=== PATIENT | female | born 1955 | race Caucasian/White ===

== ENCOUNTER 2022-09-12 09:06 | Outpatient (AMB) | payer MEDICARE, OTHER, SELFPAY ==
--- NOTE | 2022-09-12 09:12 | MHC.OFFVIS ---
Intake Vital Signs 09/12/22 09:26 Height 5 ft 7.5 in Weight 180 lb 1.883 oz BMI 27.8 BP 114/62 Blood Pressure Location Rt brachial Position Sitting Pulse 79 Pulse Source Pulse Oximeter Temp 97.8 F Temp Source Skin Pulse Oximetry (%) 97 Intake Visit Reasons: Joint Pain - Confirmed Intake Note: New pt presents today for joint pain consult. C/o joint pain, multiple areas. States it comes and goes. On plaquenil follows with [facility] in [place], [facility] appt next week. Machine Preservative Filler Required: No Accompanied by: Self / Same As Patient Allergies Penicillins Adverse Reaction (Unknown, Verified 09/12/22 09:38) Rash Sulfa (Sulfonamide Antibiotics) Adverse Reaction (Unknown, Verified 09/12/22 09:38) Rash Medication List - Last Reconciled 09/12/22 by Valeri Johnson MD acetaminophen (Tylenol Extra Strength) 500 mg PO Q6H PRN azelastine intranasal famotidine (Pepcid) 20 mg PO BEDTIME PRN hydroxychloroquine 200 mg PO BEDTIME hydroxychloroquine 200 mg PO BEDTIME ibuprofen 200 mg PO Q6H PRN loratadine 10 mg PO DAILY PRN HPI HPI Comments History of Present Illness Details This is a 67-year-old female with history of undifferentiated connective tissue disease of presents as a new patient. 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 Patient was diagnosed with UCTD 45 years ago, she had tenosynovitis of her hand as well as a positive CHARAN. She had been on hydroxychloroquine for 4-5 years with good control of her symptoms. Patient states that she continues to get intermittent pain in her wrists, that pain improves with activity such as gardening. She also gets intermittent pain in her knees and shoulders. Her pain is worse when she does not sleep well. She denies any skin rashes. Denies any history of DVT/PE. Gets mildly short of breath when walking uphill but not enough for her to stop. Denies progressive GERD symptoms. Denies any significant weight change. Denies [facility] Medical History GERD (gastroesophageal reflux disease) Undifferentiated connective tissue disease Surgical History S/P ear surgery Family History Mother Hypertension Malignant neoplasm of breast (female) Arthritis Sjogren's syndrome Father Stroke Sister Malignant tumor of ovary Family/Other Multiple sclerosis Social History Household Members: Family Alcohol intake: current Alcohol intake frequency: holidays/special occasions only Patient Tobacco Use Status: Never used Tobacco Female Reproductive History Menstrual Total pregnancies: 2 Number of Living Children: 2 Review of Systems Const Denies weight gain and Denies weight loss GI Reports heartburn and Reports nausea Musc Reports arthralgias, Reports joint swelling and Reports stiffness Physical Exam Vital Signs: Last Vital Signs Temp 97.8 F 09/12/22 09:26 Pulse 79 09/12/22 09:26 BP 114/62 09/12/22 09:26 Pulse Ox 97 09/12/22 09:26 BMI result Body Mass Index 27.8 Const General: cooperative, healthy appearing and comfortable Nutritional Appearance: overweight Orientation/consciousness: patient oriented x3 Limitations: no limitations HEENT Head: Yes normocephalic and Yes atraumatic Mouth: moist mucous membranes Resp Effort & Inspection: normal respiratory effort and able to speak in complete sentences Auscultation: clear to auscultation bilaterally Cardio Rate: regular rate Rhythm: regular rhythm GI Inspection: No distended Palpation (GI): Soft to palpation and nontender Skin General skin exam: no rashes or lesions noted Neuro General: patient oriented x3 Extrem Other: Mildly left wrist pain with full wrist extension Left 2nd MCP boggy swelling without tenderness Left 5th finger early Dupuytren's contracture Boggy swelling of bilateral 1st MCPs without tenderness Normal range of motion of both shoulders Bilateral knee crepitus more pronounced on the left Results Reviewed Results Reviewed: Labs 04/2021? C3/C4 normal? ESR 14? CRP 13.5 (<9.0) CMP unremarkable Urinalysis is normal? CBC unremarkable CHARAN 1-320 nuclear dense fine speckled DsDNA negative Assessment & Plan Assessment & Plan (1) Undifferentiated connective tissue disease: Code(s): M35.9 - Systemic involvement of connective tissue, unspecified Plan: This is a 67-year-old female who presents for evaluation of undifferentiated connective tissue disease. 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 Patient was diagnosed with UCTD 45 years ago. She had tenosynovitis of her hand and a positive CHARAN. No other features of connective tissue diseases. Patient has responded well to hydroxychloroquine. She continues to get intermittent joint pain and stiffness. Will check labs for inflammatory markers and rule out overlap with other connective tissue diseases Increase hydroxychloroquine to 400 mg daily Follow-up in 3 months (2) Long-term use of hydroxychloroquine: Code(s): Z79.899 - Other buttermaker continuous churn (current) drug therapy Plan: Continue to follow-up regularly with Ophthalmology Plan I spent 33 minutes reviewing patient's chart, evaluating patient, ordering diagnostic workup, counseling patient and documenting in the chart Orders: Orders Comprehensive Met. Panel Today M32.9 - Systemic lupus erythematosus, unspecified, M35.9 - Systemic involvement of connective tissue, unspecified C Reactive Protein Today M32.9 - Systemic lupus erythematosus, unspecified, M35.9 - Systemic involvement of connective tissue, unspecified Complete Blood Count Auto Diff Today M32.9 - Systemic lupus erythematosus, unspecified, M35.9 - Systemic involvement of connective tissue, unspecified Erythrocyte Sedimentation Rate Today M32.9 - Systemic lupus erythematosus, unspecified, M35.9 - Systemic involvement of connective tissue, unspecified Protein Creatinine Ratio, Ur Today M32.9 - Systemic lupus erythematosus, unspecified, M35.9 - Systemic involvement of connective tissue, unspecified Complement C3 Today M32.9 - Systemic lupus erythematosus, unspecified, M35.9 - Systemic involvement of connective tissue, unspecified Complement C4 Today M32.9 - Systemic lupus erythematosus, unspecified, M35.9 - Systemic involvement of connective tissue, unspecified Anti DNA DS Antibody Today M32.9 - Systemic lupus erythematosus, unspecified, M35.9 - Systemic involvement of connective tissue, unspecified Anti Extractable Nuclear Ag Today M32.9 - Systemic lupus erythematosus, unspecified, M35.9 - Systemic involvement of connective tissue, unspecified Sjogren's Antibodies Today M32.9 - Systemic lupus erythematosus, unspecified, M35.9 - Systemic involvement of connective tissue, unspecified UA w Microscopic Today M32.9 - Systemic lupus erythematosus, unspecified, M35.9 - Systemic involvement of connective tissue, unspecified Medications: New hydroxychloroquine 200 mg PO BID 60 tabs 2RF Coding Level of Care Code New Pt Level 3 (75033) Diagnoses Undifferentiated connective tissue disease M35.9 Long-term use of hydroxychloroquine Z79.899
[2022-09-12 09:26] VITALS: BP 114/62; PULSE 79; TEMP 36.6; O2SAT 97; BMI 27.8
== END 2022-09-12 10:05 | disposition home or self-care (01) ==
PROVIDERS: PCP Internal Medicine; Visit Provider Student in an Organized Health Care Education/Training Program
DX: M35.89 Other specified systemic involvement of connective tissue (principal); Z79.899 Other long term (current) drug therapy
CPT/HCPCS: 99204

== ENCOUNTER → 2022-09-12 09:06 | Outpatient (BNVA) | payer OTHER, SELFPAY | PROVIDERS: PCP Internal Medicine; Visit Provider Student in an Organized Health Care Education/Training Program ==

== ENCOUNTER 2022-09-12 09:55 | Outpatient (REF) | payer MEDICARE, OTHER, SELFPAY ==
[2022-09-12 10:32] LABS: MANUAL DIFF FLAG NO
[2022-09-12 10:38] LABS: Basophils Percent Auto 0.5 % (0-2); Eosinophils Absolute Auto 0.2 X10*3/uL (0.0-0.4); Eosinophils Percent Auto 3.4 % (0-4); Hematocrit 43.8 % (37.0-47.0); Hemoglobin 14.5 g/dl (12.0-16.0); Imm Gran Abs Auto 0.01 X10*3/uL (0.00-0.03); Imm Gran Pct Auto 0.2 % (0.0-0.4); Lymphocytes Absolute Auto 1.1 X10*3/uL (1.2-4.9); Lymphocytes Percent Auto 20.2 % (20-40); Mean Corpuscular HGB Conc 33.1 g/dl (31.0-35.0); Mean Corpuscular Hemoglobin 29.4 pg (27.0-33.0); Mean Corpuscular Volume 88.7 fL (80.0-98.0); Mean Platelet Volume 8.5 fL (9.4-12.3); Monocytes Absolute Auto 0.5 X10*3/uL (0.1-1.2); Monocytes Percent Auto 8.5 % (2-11); Neutrophils Absolute Auto 3.8 x10*3/uL (2.0-8.3); Neutrophils Percent Auto 67.2 % (45-73); Platelet Count 309 X10*3/uL (160-400); Red Blood Count 4.94 X10*6/uL (4.20-5.50); Red Cell Distribution Width 12.2 % (11.0-16.0); White Blood Count 5.6 X10*3/uL (4.8-10.8)
[2022-09-12 11:06] LABS: Appearance Urine Clear; Color Urine Yellow; Glucose Urine UA Negative (Negative); Leukocyte Esterase Urine Negative (Negative); Nitrite Urine Negative (Negative); PH 5.5 (5.0-9.0); Urine Blood Negative (Negative); Urine Ketones Negative (Negative); Urine Protein Negative (Neg-Trace)
[2022-09-12 11:09] LABS: Bacteria Urine None Seen (None Seen); Hyaline Casts Urine 0-2 /LPF (0-2); Squamous Epithelial Cell Urine 0-2 /HPF (0-2); WBC Urine 0-5 /HPF (0-5)
[2022-09-12 11:23] LABS: Alanine Aminotransferase 14 U/L (0-31); Albumin Level 4.2 g/dL (3.5-5.0); Alkaline Phosphatase 90 U/L (39-117); Anion Gap 14 (12-20); Aspartate Amino Transferase 19 U/L (5-31); Bilirubin Total 0.5 mg/dL (0.0-1.0); Blood Urea Nitrogen 21 mg/dL (9-16); C Reactive Protein 0.29 mg/dL (< or = 0.50); Calcium 9.4 mg/dL (8.4-10.2); Carbon Dioxide 24 mmol/L (22-29); Chloride 106 mmol/L (96-108); Estimated Glomerular Filt Rate > 60; Glucose Random 84 mg/dL (60-115); Potassium 4.1 mmol/L (3.3-5.1); Sodium 140 mmol/L (135-145); Total Protein 7.7 g/dL (6.5-8.0)
[2022-09-12 11:24] LABS: Creatinine Urine 141.01 mg/dL; Total Protein Urine Random < 7 mg/dL (<12)
[2022-09-12 11:26] LABS: Erythrocyte Sedimentation Rate 5 MM/HR (0-20)
[2022-09-14 12:53] LABS: Complement C3 152 mg/dL (83-193)
[2022-09-14 19:18] LABS: Anti DNA DS Antibody <1 IU/mL; Antibody to SS-A Antigen <1.0 NEG AI (<1.0 NEG); Antibody to SS-B Antigen <1.0 NEG AI (<1.0 NEG); SM/Ribonucleoprotein Ab <1.0 NEG AI (<1.0 NEG); Smith Protein <1.0 NEG AI (<1.0 NEG)
== END 2022-09-12 09:56 | disposition home or self-care (01) ==
LOC: HO.10HDL 09:55
PROVIDERS: Visit Provider Student in an Organized Health Care Education/Training Program
DX: M32.9 Systemic lupus erythematosus, unspecified (principal); M35.9 Systemic involvement of connective tissue, unspecified; Z79.899 Other long term (current) drug therapy
CPT/HCPCS: 36415; 80053; 81001; 84156; 85025; 85652; 86140; 86160; 86225; 86235

== ENCOUNTER 2023-01-09 09:37 | Outpatient (AMB) | payer MEDICARE, OTHER, SELFPAY ==
[2023-01-09 10:06] VITALS: BP 112/72; PULSE 73; TEMP 35.9; O2SAT 98; BMI 28.0
--- NOTE | 2023-01-09 10:06 | MHC.OFFVIS ---
Intake Vital Signs 01/09/23 10:06 Height 5 ft 7.5 in Weight 181 lb 3.52 oz BMI 28.0 BP 112/72 Blood Pressure Location Rt brachial Position Sitting Pulse 73 Pulse Source Pulse Oximeter Temp 96.7 F L Temp Source Skin Pulse Oximetry (%) 98 Oxygen Delivery Method Room Air Intake Visit Reasons: UCTD Intake Note: Pt last seen 09/12/22, presents today for follow up and test results. On plaquenil 400mg daily. Follows with [facility], last seen in September. 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 Development Engineer Required: No Accompanied by: Self / Same As Patient Allergies Penicillins Adverse Reaction (Unknown, Verified 01/09/23 10:09) Rash Sulfa (Sulfonamide Antibiotics) Adverse Reaction (Unknown, Verified 01/09/23 10:09) Rash Medication List - Last Reconciled 01/09/23 by Valeri Johnson MD acetaminophen (Tylenol Extra Strength) 500 mg PO Q6H PRN azelastine intranasal famotidine (Pepcid) 20 mg PO BEDTIME PRN hydroxychloroquine 400 mg PO BEDTIME ibuprofen 200 mg PO Q6H PRN loratadine 10 mg PO DAILY PRN HPI HPI Comments History of Present Illness Details 67-year-old female with UCTD returns for follow-up. She has been taking 400 mg of Plaquenil nightly since last visit. She did not notice any improvement in her symptoms. She is doing well overall. Has been quite active. Gets generalized morning stiffness lasting 5-10 minutes. Denies any swollen joints. Denies any cough or shortness of breath. Initial history: This is a 67-year-old female with history of undifferentiated connective tissue disease of presents as a new patient. 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 Patient was diagnosed with UCTD 45 years ago, she had tenosynovitis of her hand as well as a positive CHARAN. She had been on hydroxychloroquine for 4-5 years with good control of her symptoms. Patient states that she continues to get intermittent pain in her wrists, that pain improves with activity such as gardening. She also gets intermittent pain in her knees and shoulders. Her pain is worse when she does not sleep well. She denies any skin rashes. Denies any history of DVT/PE. Gets mildly short of breath when walking uphill but not enough for her to stop. Denies progressive GERD symptoms. Denies any significant weight change. Denies [facility] Medical History Undifferentiated connective tissue disease GERD (gastroesophageal reflux disease) Surgical History S/P ear surgery Family History Mother Hypertension Malignant neoplasm of breast (female) Arthritis Sjogren's syndrome Father Stroke Sister Malignant tumor of ovary Family/Other Multiple sclerosis Social History Household Members: Family Alcohol intake: current Alcohol intake frequency: holidays/special occasions only Patient Tobacco Use Status: Never used Tobacco Review of Systems Card Denies dyspnea Resp Denies cough and Denies dyspnea Musc Reports arthralgias and Reports stiffness Physical Exam Vital Signs: Last Vital Signs Temp 96.7 F L 01/09/23 10:06 Pulse 73 01/09/23 10:06 BP 112/72 01/09/23 10:06 Pulse Ox 98 01/09/23 10:06 Oxygen Delivery Method Room Air 01/09/23 10:06 BMI result Body Mass Index 28.0 Const General: cooperative, healthy appearing and comfortable Nutritional Appearance: overweight Orientation/consciousness: patient oriented x3 Limitations: no limitations HEENT Head: Yes normocephalic and Yes atraumatic Mouth: moist mucous membranes Resp Effort & Inspection: normal respiratory effort and able to speak in complete sentences Auscultation: clear to auscultation bilaterally Cardio Rate: regular rate Rhythm: regular rhythm GI Inspection: No distended Palpation (GI): Soft to palpation and nontender Skin General skin exam: no rashes or lesions noted Neuro General: patient oriented x3 Extrem Other: Mildl left wrist pain with full wrist extension Left 5th finger early Dupuytren's contracture Boggy swelling of bilateral 1st MCPs without tenderness Normal range of motion of both shoulders Bilateral knee crepitus more pronounced on the left Negative straight leg raise test bilaterally Results Reviewed Results Reviewed: Labs 04/2021? C3/C4 normal? ESR 14? CRP 13.5 (<9.0) CMP unremarkable Urinalysis is normal? CBC unremarkable CHARAN 1-320 nuclear dense fine speckled DsDNA negative Assessment & Plan Assessment & Plan (1) Undifferentiated connective tissue disease: Comment: dx around 2018 Code(s): M35.9 - Systemic involvement of connective tissue, unspecified Plan: This is a 67-year-old female with UCTD presents for follow-up. On hydroxychloroquine 400 mg daily. There has been no change in symptoms when hydroxychloroquine was increased from 200 mg to 400 mg daily Reduce hydroxychloroquine to 200 mg daily. Labs before next visit in 6 months (2) Long-term use of hydroxychloroquine: Code(s): Z79.899 - Other emt intermediate (current) drug therapy Plan: Continue to follow-up regularly with Ophthalmology. Will request most recent ophthalmology note Plan I spent 26 minutes reviewing patient's chart, evaluating patient, ordering diagnostic workup, counseling patient and documenting in the chart Orders: Orders Complete Blood Count Auto Diff 6 Months M35.9 - Systemic involvement of connective tissue, unspecified Comprehensive Met. Panel 6 Months M35.9 - Systemic involvement of connective tissue, unspecified C Reactive Protein 6 Months M35.9 - Systemic involvement of connective tissue, unspecified Erythrocyte Sedimentation Rate 6 Months M35.9 - Systemic involvement of connective tissue, unspecified Cyclic Citrullinated Peptide 6 Months M35.9 - Systemic involvement of connective tissue, unspecified Rheumatoid Factor 6 Months M35.9 - Systemic involvement of connective tissue, unspecified Medications: Changed From hydroxychloroquine 400 mg PO BEDTIME To hydroxychloroquine 200 mg PO DAILY 90 tabs 1RF Coding Level of Care Code Est Pt Level 4 (33288) Diagnoses Undifferentiated connective tissue disease M35.9 Long-term use of hydroxychloroquine Z79.899
== END 2023-01-09 10:38 | disposition home or self-care (01) ==
PROVIDERS: PCP Internal Medicine; Visit Provider Student in an Organized Health Care Education/Training Program
DX: M35.89 Other specified systemic involvement of connective tissue (principal); Z79.899 Other long term (current) drug therapy
CPT/HCPCS: 99214

== ENCOUNTER → 2023-01-09 09:37 | Outpatient (BNVA) | payer MEDICARE, OTHER, SELFPAY | PROVIDERS: PCP Internal Medicine; Visit Provider Student in an Organized Health Care Education/Training Program | DX: M35.9 Systemic involvement of connective tissue, unspecified (principal); Z79.899 Other long term (current) drug therapy | CPT/HCPCS: 99212 ==

== ENCOUNTER 2023-06-26 16:27 | Outpatient (REF) | payer MEDICARE, OTHER, SELFPAY ==
[2023-06-26 16:38] LABS: MANUAL DIFF FLAG NO
[2023-06-26 17:49] LABS: Basophils Percent Auto 0.6 % (0-2); Eosinophils Absolute Auto 0.2 X10*3/uL (0.0-0.4); Eosinophils Percent Auto 3.3 % (0-4); Hematocrit 43.5 % (37.0-47.0); Hemoglobin 14.5 g/dl (12.0-16.0); Imm Gran Abs Auto 0.02 X10*3/uL (0.00-0.03); Imm Gran Pct Auto 0.3 % (0.0-0.4); Lymphocytes Absolute Auto 1.9 X10*3/uL (1.2-4.9); Lymphocytes Percent Auto 28.3 % (20-40); Mean Corpuscular HGB Conc 33.3 g/dl (31.0-35.0); Mean Corpuscular Volume 90.1 fL (80.0-98.0); Mean Platelet Volume 8.7 fL (9.4-12.3); Monocytes Absolute Auto 0.6 X10*3/uL (0.1-1.2); Monocytes Percent Auto 9.2 % (2-11); Neutrophils Absolute Auto 3.9 x10*3/uL (2.0-8.3); Neutrophils Percent Auto 58.3 % (45-73); Platelet Count 291 X10*3/uL (160-400); Red Blood Count 4.83 X10*6/uL (4.20-5.50); Red Cell Distribution Width 12.3 % (11.0-16.0); White Blood Count 6.8 X10*3/uL (4.8-10.8)
[2023-06-26 18:18] LABS: Rheumatoid Factor < 13.0 IU/mL (<15.0)
[2023-06-26 18:21] LABS: Alanine Aminotransferase 11 U/L (0-31); Albumin Level 4.2 g/dL (3.5-5.0); Alkaline Phosphatase 84 U/L (39-117); Anion Gap 14 (12-20); Aspartate Amino Transferase 18 U/L (5-31); Bilirubin Total 0.3 mg/dL (0.0-1.0); Blood Urea Nitrogen 25 mg/dL (9-16); Calcium 9.2 mg/dL (8.4-10.2); Carbon Dioxide 23 mmol/L (22-29); Chloride 108 mmol/L (96-108); Estimated Glomerular Filt Rate 55; Glucose Random 107 mg/dL (60-115); Potassium 3.7 mmol/L (3.3-5.1); Sodium 141 mmol/L (135-145); Total Protein 7.6 g/dL (6.5-8.0)
[2023-06-26 18:32] LABS: Erythrocyte Sedimentation Rate 7 MM/HR (0-20)
[2023-06-27 15:43] LABS: Cyclic Citrullinated Peptide 38 UNITS
== END 2023-06-26 16:28 | disposition home or self-care (01) ==
LOC: HO.LAB 16:27
PROVIDERS: Visit Provider Student in an Organized Health Care Education/Training Program
DX: M35.9 Systemic involvement of connective tissue, unspecified (principal)
CPT/HCPCS: 36415; 80053; 85025; 85652; 86140; 86200; 86431

== ENCOUNTER 2023-07-03 09:17 | Outpatient (AMB) | payer MEDICARE, OTHER, SELFPAY ==
--- NOTE | 2023-07-03 09:29 | MHC.OFFVIS ---
Vital Signs 07/03/23 09:40 Height 5 ft 7.5 in Weight 179 lb 7.3 oz BMI 27.7 BP 138/64 Blood Pressure Location Rt brachial Position Sitting Pulse 80 Pulse Oximetry (%) 97 Intake Visit Reasons: UCTD Intake Note: Patient last seen 01/09/23 presents today for follow up and test results. Patient would like to increase her plaquenil to BID. Last eye care visit 09/2022 (notes scanned in). Allergies Penicillins Adverse Reaction (Unknown, Verified 07/03/23 09:39) Rash Sulfa (Sulfonamide Antibiotics) Adverse Reaction (Unknown, Verified 07/03/23 09:39) Rash Medication List - Last Reconciled 07/03/23 by Valeri Johnson MD acetaminophen (Tylenol Extra Strength) 500 mg PO Q6H PRN azelastine intranasal famotidine (Pepcid) 20 mg PO BEDTIME PRN hydroxychloroquine 400 mg (2 x 200 mg) PO DAILY ibuprofen 200 mg PO Q6H PRN loratadine 10 mg PO DAILY PRN HPI Comments Details: 68-year-old female with UCTD returns for follow-up. She has lowered her hydroxychloroquine dose to 200 mg daily since last visit 6 months ago and since then she has noticed her MSK complaints. She gets bilateral ankle and foot pain when going down the stairs. She gets elbow pain with distal trauma. She has morning stiffness lasting 15 minutes. Has not noticed any significantly swollen joints. Otherwise she has been doing well. Denies any chest pain or shortness of breath. Like to increase the hydroxychloroquine back to 400 mg daily Initial history: This is a 67-year-old female with history of undifferentiated connective tissue disease of presents as a new patient. 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 Patient was diagnosed with UCTD 4-5 years ago, she had tenosynovitis of her hand as well as a positive CHARAN. She had been on hydroxychloroquine for 4-5 years with good control of her symptoms. Patient states that she continues to get intermittent pain in her wrists, that pain improves with activity such as gardening. She also gets intermittent pain in her knees and shoulders. Her pain is worse when she does not sleep well. She denies any skin rashes. Denies any history of DVT/PE. Gets mildly short of breath when walking uphill but not enough for her to stop. Denies progressive GERD symptoms. Denies any significant weight change. Denies [facility] Medical History Undifferentiated connective tissue disease GERD (gastroesophageal reflux disease) Surgical History S/P ear surgery Family History Mother Hypertension Malignant neoplasm of breast (female) Arthritis Sjogren's syndrome Father Stroke Sister Malignant tumor of ovary Family/Other Multiple sclerosis Social History Household Members: Family Alcohol intake: current Alcohol intake frequency: holidays/special occasions only Patient Tobacco Use Status: Never used Tobacco Review of Systems Card Denies dyspnea Resp Denies cough and Denies dyspnea Musc Reports arthralgias and Reports stiffness Physical Exam Vital Signs: Last Vital Signs Pulse 80 07/03/23 09:40 BP 138/64 07/03/23 09:40 Pulse Ox 97 07/03/23 09:40 BMI result Body Mass Index 27.7 Const General: cooperative, healthy appearing and comfortable Nutritional Appearance: overweight Orientation/consciousness: patient oriented x3 Limitations: no limitations HEENT Head: Yes normocephalic and Yes atraumatic Mouth: moist mucous membranes Resp Effort & Inspection: normal respiratory effort and able to speak in complete sentences Auscultation: clear to auscultation bilaterally Cardio Rate: regular rate Rhythm: regular rhythm GI Inspection: No distended Palpation (GI): Soft to palpation and nontender Skin General skin exam: no rashes or lesions noted Neuro General: patient oriented x3 Extrem Other: Mildl left wrist pain with full wrist extension Left 4th MCP swelling, minimal tenderness Left 4th finger swelling no tenderness Normal range of motion of elbows and shoulders without pain No knee pain with full flexion and extension No ankle swelling or tenderness bilaterally Results Reviewed Results Reviewed: Labs 04/2021? C3/C4 normal? ESR 14? CRP 13.5 (<9.0) CMP unremarkable Urinalysis is normal? CBC unremarkable CHARAN 1-320 nuclear dense fine speckled DsDNA negative Assessment & Plan Assessment & Plan (1) Undifferentiated connective tissue disease: Comment: dx around 2018 +CHARAN arthralgias. HCQ 2018 +CCP -ve RF Code(s): M35.9 - Systemic involvement of connective tissue, unspecified Category: Medical Plan: This is a 68-year-old female with UCTD presents for follow-up. Recent labs showed weak positive anti CCP antibody. I believe her diagnosis is seropositive rheumatoid arthritis. We had lowered her hydroxychloroquine dose from 400 mg daily to 200 mg daily last visit 6 months ago and since then she has noticed increase joint pain and stiffness. On exam she has 1 swollen joint. Will increase hydroxychloroquine back to 400 mg daily Labs before next visit in 6 months (2) Long-term use of hydroxychloroquine: Comment: Eye exam okay 09/2022 Code(s): Z79.899 - Other intermediate frame tender (current) drug therapy Category: Medical Plan: Continue to follow-up regularly with Ophthalmology. Will request most recent ophthalmology note Plan I spent 26 minutes reviewing patient's chart, evaluating patient, ordering diagnostic workup, counseling patient and documenting in the chart Orders: Orders Comprehensive Met. Panel 6 Months M35.9 - Systemic involvement of connective tissue, unspecified C Reactive Protein 6 Months M35.9 - Systemic involvement of connective tissue, unspecified Erythrocyte Sedimentation Rate 6 Months M35.9 - Systemic involvement of connective tissue, unspecified Complete Blood Count Auto Diff 6 Months M35.9 - Systemic involvement of connective tissue, unspecified Medications: Changed From hydroxychloroquine 200 mg PO DAILY 90 tabs 1RF To hydroxychloroquine 400 mg (2 x 200 mg) PO DAILY 180 tabs 1RF Coding Level of Care Code Est Pt Level 4 (73752) Diagnoses Undifferentiated connective tissue disease M35.9 Long-term use of hydroxychloroquine Z79.899
[2023-07-03 09:40] VITALS: BP 138/64; PULSE 80; O2SAT 97; BMI 27.7
== END 2023-07-03 10:53 | disposition home or self-care (01) ==
PROVIDERS: PCP Internal Medicine; Visit Provider Student in an Organized Health Care Education/Training Program
DX: M35.89 Other specified systemic involvement of connective tissue (principal); Z79.899 Other long term (current) drug therapy
CPT/HCPCS: 99214

== ENCOUNTER → 2023-07-03 09:17 | Outpatient (BNVA) | payer MEDICARE, OTHER, SELFPAY | PROVIDERS: PCP Internal Medicine; Visit Provider Student in an Organized Health Care Education/Training Program | DX: M35.9 Systemic involvement of connective tissue, unspecified (principal); Z79.899 Other long term (current) drug therapy | CPT/HCPCS: 99212 ==

== ENCOUNTER 2024-01-22 15:38 | Outpatient (REF) | payer MEDICARE, OTHER, SELFPAY ==
[2024-01-22 15:51] LABS: MANUAL DIFF FLAG NO
[2024-01-22 16:47] LABS: Basophils Percent Auto 0.7 % (0-2); Eosinophils Absolute Auto 0.1 X10*3/uL (0.0-0.4); Eosinophils Percent Auto 2.3 % (0-4); Hematocrit 40.4 % (37.0-47.0); Hemoglobin 13.5 g/dl (12.0-16.0); Imm Gran Abs Auto 0.02 X10*3/uL (0.00-0.03); Imm Gran Pct Auto 0.3 % (0.0-0.4); Lymphocytes Absolute Auto 1.6 X10*3/uL (1.2-4.9); Lymphocytes Percent Auto 25.8 % (20-40); Mean Corpuscular HGB Conc 33.4 g/dl (31.0-35.0); Mean Corpuscular Hemoglobin 29.6 pg (27.0-33.0); Mean Corpuscular Volume 88.6 fL (80.0-98.0); Mean Platelet Volume 9.1 fL (9.4-12.3); Monocytes Absolute Auto 0.5 X10*3/uL (0.1-1.2); Monocytes Percent Auto 8.8 % (2-11); Neutrophils Absolute Auto 3.8 x10*3/uL (2.0-8.3); Neutrophils Percent Auto 62.1 % (45-73); Platelet Count 290 X10*3/uL (160-400); Red Blood Count 4.56 X10*6/uL (4.20-5.50); Red Cell Distribution Width 12.3 % (11.0-16.0); White Blood Count 6.1 X10*3/uL (4.8-10.8)
[2024-01-22 17:17] LABS: Alanine Aminotransferase 14 U/L (0-31); Alkaline Phosphatase 96 U/L (39-117); Anion Gap 12 (12-20); Aspartate Amino Transferase 20 U/L (5-31); Bilirubin Total 0.4 mg/dL (0.0-1.0); Blood Urea Nitrogen 18 mg/dL (9-16); C Reactive Protein 0.13 mg/dL (< or = 0.50); Calcium 9.6 mg/dL (8.4-10.2); Carbon Dioxide 25 mmol/L (22-29); Chloride 109 mmol/L (96-108); Estimated Glomerular Filt Rate 58; Glucose Random 124 mg/dL (60-115); Potassium 3.6 mmol/L (3.3-5.1); Sodium 142 mmol/L (135-145); Total Protein 7.3 g/dL (6.5-8.0)
[2024-01-22 17:45] LABS: Erythrocyte Sedimentation Rate 6 MM/HR (0-20)
== END 2024-01-22 15:39 | disposition home or self-care (01) ==
LOC: HO.LAB 15:38
PROVIDERS: PCP Internal Medicine Nephrology; Visit Provider Student in an Organized Health Care Education/Training Program
DX: M35.9 Systemic involvement of connective tissue, unspecified (principal)
CPT/HCPCS: 36415; 80053; 85025; 85652; 86140

== ENCOUNTER 2024-01-27 08:25 | Outpatient (AMB) | payer MEDICARE, OTHER, SELFPAY ==
--- NOTE | 2024-01-27 08:29 | A.OFFVIS_ITS ---
Vital Signs 01/27/24 08:33 Height 5 ft 7.5 in Weight 172 lb 2.896 oz BMI 26.6 BP 134/64 Blood Pressure Location Rt brachial Position Sitting Pulse 67 Pulse Source Pulse Oximeter Pulse Oximetry (%) 97 Oxygen Delivery Method Room Air Intake Visit Reasons: RA/UCTD Intake Note: Patient presents for RA. Allergies Penicillins Adverse Reaction (Unknown, Verified 01/27/24 08:33) Rash Sulfa (Sulfonamide Antibiotics) Adverse Reaction (Unknown, Verified 01/27/24 08:33) Rash Medication List - Last Reconciled 01/27/24 by Valeri Johnson MD acetaminophen (Tylenol Extra Strength) 500 mg PO Q6H PRN azelastine intranasal famotidine (Pepcid) 20 mg PO BEDTIME PRN hydroxychloroquine 400 mg (2 x 200 mg) PO DAILY ibuprofen 200 mg PO Q6H PRN loratadine 10 mg PO DAILY PRN HPI Comments Details: 68-year-old female with seropositive RA returns for follow-up. She is on hydroxychloroquine 400 mg daily. She states that she is doing quite well overall. No MSK complaints whatsoever. She has no complaints today. Initial history: This is a 67-year-old female with history of undifferentiated connective tissue disease of presents as a new patient. 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 Patient was diagnosed with UCTD 4-5 years ago, she had tenosynovitis of her hand as well as a positive CHARAN. She had been on hydroxychloroquine for 4-5 years with good control of her symptoms. Patient states that she continues to get intermittent pain in her wrists, that pain improves with activity such as gardening. She also gets intermittent pain in her knees and shoulders. Her pain is worse when she does not sleep well. She denies any skin rashes. Denies any history of DVT/PE. Gets mildly short of breath when walking uphill but not enough for her to stop. Denies progressive GERD symptoms. Denies any significant weight change. Denies Raynaud's [facility] Medical History (Updated 01/27/24 @ 09:09 by Valeri Johnson MD) Undifferentiated connective tissue disease GERD (gastroesophageal reflux disease) Surgical History S/P ear surgery Family History Mother Hypertension Malignant neoplasm of breast (female) Arthritis Sjogren's syndrome Father Stroke Sister Malignant tumor of ovary Family/Other Multiple sclerosis Social History Household Members: Family Alcohol intake: current Alcohol intake frequency: holidays/special occasions o nly Patient Tobacco Use Status: Never used Tobacco Female Reproductive History Menstrual Total pregnancies: 2 Number of Living Children: 2 Review of Systems Card Denies dyspnea Resp Denies cough and Denies dyspnea Musc Denies arthralgias, Denies joint swelling and Denies stiffness Physical Exam Vital Signs: Last Vital Signs Pulse 67 01/27/24 08:33 BP 134/64 01/27/24 08:33 Pulse Ox 97 01/27/24 08:33 Oxygen Delivery Method Room Air 01/27/24 08:33 BMI result Body Mass Index 26.6 Const General: cooperative, healthy appearing and comfortable Nutritional Appearance: overweight Orientation/consciousness: patient oriented x3 Limitations: no limitations HEENT Head: Yes normocephalic and Yes atraumatic Mouth: moist mucous membranes Resp Effort & Inspection: normal respiratory effort and able to speak in complete sentences Auscultation: clear to auscultation bilaterally Cardio Rate: regular rate Rhythm: regular rhythm GI Inspection: No distended Palpation (GI): Soft to palpation and nontender Skin General skin exam: no rashes or lesions noted Neuro General: patient oriented x3 Extrem Other: No wrist swelling, tenderness or pain with full flexion-extension bilaterally There is a boggy synovial thickening at the right 5th MCP but not tender No active synovitis otherwise both hands and wrists Normal pain-free range of motion of elbows and shoulders No knee pain swelling or warmth bilaterally or pain with full flexion-extension No ankle swelling or tenderness bilaterally Results Reviewed Results Reviewed: Labs 04/2021? C3/C4 normal? ESR 14? CRP 13.5 (<9.0) CMP unremarkable Urinalysis is normal? CBC unremarkable CHARAN 1-320 nuclear dense fine speckled DsDNA negative Assessment & Plan Assessment & Plan (1) Seropositive rheumatoid arthritis: Comment: intially t dx with UCTD around 2017 +CHARAN arthralgias. HCQ 2018 dx changed sero + RA based on +CCP Ab 06/2023 Active ds when HCQ lowered to 200 mg, needs 400 mg effective Code(s): M05.9 - Rheumatoid arthritis with rheumatoid factor, unspecified Category: Medical Plan: This is a 68-year-old female with seropositive RA who presents for follow-up. On hydroxychloroquine 400 mg daily Doing well overall with no active synovitis. Continue with hydroxychloroquine 400 mg daily Labs before next visit in 6 months (2) Long-term use of hydroxychloroquine: Comment: Eye exam okay 09/2022 Code(s): Z79.899 - Other prison (current) drug therapy Category: Medical Plan: Continue to follow-up regularly with Ophthalmology. Will request most recent ophthalmology note Plan I spent 26 minutes reviewing patient's chart, evaluating patient, ordering diagnostic workup, counseling patient and documenting in the chart Orders: Orders Complete Blood Count Auto Diff 6 Months M05.9 - Rheumatoid arthritis with rheumatoid factor, unspecified C Reactive Protein 6 Months M05.9 - Rheumatoid arthritis with rheumatoid factor, unspecified Erythrocyte Sedimentation Rate 6 Months M05.9 - Rheumatoid arthritis with rheum atoid factor, unspecified Comprehensive Met. Panel 6 Months M05.9 - Rheumatoid arthritis with rheumatoid factor, unspecified Coding Level of Care Code Est Pt Level 4 (98475) Diagnoses Seropositive rheumatoid arthritis M05.9 Long-term use of hydroxychloroquine Z79.899
[2024-01-27 08:33] VITALS: BP 134/64; PULSE 67; O2SAT 97; BMI 26.6
== END 2024-01-27 09:07 | disposition home or self-care (01) ==
PROVIDERS: PCP Family Medicine; Referring Provider Family Medicine; Visit Provider Student in an Organized Health Care Education/Training Program
DX: M05.79 Rheumatoid arthritis with rheumatoid factor of multiple sites without organ or systems involvement (principal); Z79.899 Other long term (current) drug therapy
CPT/HCPCS: 99214

== ENCOUNTER → 2024-01-27 08:25 | Outpatient (BNVA) | payer MEDICARE, OTHER, SELFPAY | PROVIDERS: PCP Family Medicine; Referring Provider Family Medicine; Visit Provider Student in an Organized Health Care Education/Training Program | DX: M05.9 Rheumatoid arthritis with rheumatoid factor, unspecified (principal); Z79.899 Other long term (current) drug therapy | CPT/HCPCS: 99212 ==

== ENCOUNTER 2024-07-24 16:28 | Outpatient (REF) | payer MEDICARE, OTHER, SELFPAY ==
[2024-07-24 16:39] LABS: MANUAL DIFF FLAG NO
[2024-07-24 16:55] LABS: Basophils Percent Auto 0.6 % (0-2); Eosinophils Absolute Auto 0.1 X10*3/uL (0.0-0.4); Eosinophils Percent Auto 1.9 % (0-4); Hematocrit 39.1 % (37.0-47.0); Hemoglobin 13.5 g/dl (12.0-16.0); Imm Gran Abs Auto 0.02 X10*3/uL (0.00-0.03); Imm Gran Pct Auto 0.3 % (0.0-0.4); Lymphocytes Absolute Auto 1.9 X10*3/uL (1.2-4.9); Lymphocytes Percent Auto 29.7 % (20-40); Mean Corpuscular HGB Conc 34.5 g/dl (31.0-35.0); Mean Corpuscular Hemoglobin 30.1 pg (27.0-33.0); Mean Corpuscular Volume 87.3 fL (80.0-98.0); Mean Platelet Volume 8.6 fL (9.4-12.3); Monocytes Absolute Auto 0.6 X10*3/uL (0.1-1.2); Monocytes Percent Auto 9.6 % (2-11); Neutrophils Absolute Auto 3.7 x10*3/uL (2.0-8.3); Neutrophils Percent Auto 57.9 % (45-73); Platelet Count 297 X10*3/uL (160-400); Red Blood Count 4.48 X10*6/uL (4.20-5.50); Red Cell Distribution Width 12.2 % (11.0-16.0); White Blood Count 6.4 X10*3/uL (4.8-10.8)
[2024-07-24 17:17] LABS: Alanine Aminotransferase 16 U/L (0-31); Albumin Level 4.3 g/dL (3.5-5.0); Alkaline Phosphatase 103 U/L (39-117); Anion Gap 12 (12-20); Aspartate Amino Transferase 23 U/L (5-31); Bilirubin Total 0.3 mg/dL (0.0-1.0); Blood Urea Nitrogen 19 mg/dL (9-16); C Reactive Protein 0.18 mg/dL (< or = 0.50); Calcium 9.1 mg/dL (8.4-10.2); Carbon Dioxide 25 mmol/L (22-29); Chloride 107 mmol/L (96-108); Estimated Glomerular Filt Rate > 60; Glucose Random 112 mg/dL (60-115); Potassium 3.9 mmol/L (3.3-5.1); Sodium 140 mmol/L (135-145); Total Protein 7.2 g/dL (6.5-8.0)
[2024-07-24 17:53] LABS: Erythrocyte Sedimentation Rate 7 MM/HR (0-20)
== END 2024-07-24 16:29 | disposition home or self-care (01) ==
LOC: HO.LAB 16:28
PROVIDERS: Visit Provider Student in an Organized Health Care Education/Training Program
DX: M05.9 Rheumatoid arthritis with rheumatoid factor, unspecified (principal)
CPT/HCPCS: 36415; 80053; 85025; 85652; 86140

== ENCOUNTER 2024-08-04 08:14 | Outpatient (AMB) | payer MEDICARE, OTHER, SELFPAY ==
--- NOTE | 2024-08-04 08:17 | A.OFFVIS_ITS ---
Vital Signs 08/04/24 08:21 Height 5 ft 7.5 in Weight 178 lb 2.136 oz BMI 27.5 BP 134/62 Blood Pressure Location Lt brachial Position Sitting Pulse 74 Pulse Source Pulse Oximeter Pulse Oximetry (%) 97 Oxygen Delivery Method Room Air Intake Visit Reasons: RA Intake Note: Patient presents for RA. Allergies Penicillins Adverse Reaction (Unknown, Verified 08/04/24 08:20) Rash Sulfa (Sulfonamide Antibiotics) Adverse Reaction (Unknown, Verified 08/04/24 08:20) Rash Medication List - Last Reconciled 08/04/24 by Camryn Arreaga MD acetaminophen (Tylenol Extra Strength) 500 mg PO Q6H PRN azelastine intranasal famotidine (Pepcid) 20 mg PO BEDTIME PRN hydroxychloroquine 400 mg (2 x 200 mg) PO DAILY ibuprofen 200 mg PO Q6H PRN HPI Comments Details: Patient is a 69-year-old female with GERD and seropositive rheumatoid arthritis here today for follow up Interval History: Patient last seen 01/27/[address] Johnson. At that time she was following up for her seropositive rheumatoid arthritis on hydroxychloroquine monotherapy. She was doing well without any new complaints. Doing well today Again no complaints Currently retired has 2 grandchildren that she helps take care of gardens and walks Rheumatologic History: intially t dx with UCTD around 2018 +CHARAN arthralgias. HCQ 2018 dx changed sero + RA based on +CCP Ab 06/2023 Active ds when HCQ lowered to 200 mg, needs 400 mg effective Initial history: This is a 67-year-old female with history of undifferentiated connective tissue disease of presents as a new patient. 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 Patient was diagnosed with UCTD 4-5 years ago, she had tenosynovitis of her hand as well as a positive CHARAN. She had been on hydroxychloroquine for 4-5 years with good control of her symptoms. Patient states that she continues to get intermittent pain in her wrists, that pain improves with activity such as gardening. She also gets intermittent pain in her knees and shoulders. Her pain is worse when she does not sleep well. She denies any skin rashes. Denies any history of DVT/PE. Gets mildly short of breath when walking uphill but not enough for her to stop. Denies progressive GERD symptoms. Denies any significant weight change. Denies Raynaud's Current Rheumatology Medication(s): Hydroxychloroquine 200mg bid [facility] Medical History (Updated 01/27/24 @ 09:09 by Valeri Johnson MD) Undifferentiated connective tissue disease GERD (gastroesophageal reflux disease) Surgical History S/P ear surgery Family History Mother Hypertension Malignant neoplasm of breast (female) Arthritis Sjogren's syndrome Father Stroke Sister Malignant tumor of ovary Family/Other Multiple sclerosis Social History Household Members: Family Alcohol intake: current Alcohol intake frequency: holidays/special occasions only Patient Tobacco Use Status: Never used Tobacco Review of Systems Const Details: Review of Systems Constitutional: Denies fever, chills, weight loss ENT: Denies vision changes, eye pain or eye redness, dental caries, dry mouth GI: Denies nausea, vomiting, diarrhea, abdominal pain, change in BM Pulm: Denies SOB, EPPERSON, hemoptysis, wheezing Cards: Denies chest pain, palpitations Skin: Denies Raynaud's, rash, nail changes, photosensitivity, [employer] 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 Well appearing and in no apparent painful distress HEENT Conjunctiva and sclera clear. No lymphadenopathy. CHEST/RESPIRATORY SYSTEM Normal respiratory effort and able to speak in complete sentences. Clear to auscultation bilaterally. No crackles, rales, rhonchi, wheezes heard. CARDIAC SYSTEM Regular rate and rhythm. S1 and S2 heard no murmurs. Radial pulses intact bilaterally MSK Hands * Right Hand: Able to make a fist. No swelling or tenderness to palpation of these joints. * Left Hand: Able to make a fist. No swelling or tenderness to palpation of these joints. * Very mild Herbeden's nodes felt bilaterally Wrists * Right Wrist: Full ROM. 70 degrees of wrist flexion, 80 degrees of wrist extension. No swelling or TTP * Left Wrist: Full ROM. 70 degrees of wrist flexion, 80 degrees of wrist extension. No swelling or TTP Elbows * Right Elbow: Full ROM. No swelling or TTP. No TTP of the medial and lateral epicondyles * Left Elbow: Full ROM. No swelling or TTP. No TTP of the medial and lateral epicondyles Shoulders * Right shoulder: Full ROM. No swelling noted. No TTP of the AC joint, subacromial bursa or posterior shoulder * Left shoulder: Full ROM. No swelling noted. No TTP of the AC joint, subacromial bursa or posterior shoulder Hips * Right hip: Good ROM. No pain elicited with hip flexion/internal rotation/external rotation * Left hip: Good ROM. No pain elicited with hip flexion/internal rotation/ex ternal rotation Hip bursa: No tenderness to palpation bilaterally Knees * Right knee: Full ROM. No swelling noted. No TTP of the knee joint lie or pes anserine bursa * Left knee: Full ROM. No swelling noted. No TTP of the knee joint lie or pes anserine bursa. * Bilateral crepitations felt Ankles * Right ankle: Good ankle dorsiflexion and plantar flexion. No swelling. No TTP of the ankle joint * Left ankle: Good ankle dorsiflexion and plantar flexion. No swelling. No TTP of the ankle joint Feet * Right foot: Negative squeeze test * Left foot: Negative squeeze test Tender points? * No tenderness to palpation of the bilateral trapezius, supraspinatus, anterior costochondral junctions, bilateral suboccipital muscle insertions SKIN No rashes Results Reviewed Results Reviewed: Laboratory Tests 07/24/24 16:37 WBC 6.4 RBC 4.48 Hgb 13.5 Hct 39.1 Plt Count 297 ESR 7 Sodium 140 Potassium 3.9 Chloride 107 Carbon Dioxide 25 BUN 19 H Creatinine 0.88 Total Bilirubin 0.3 AST 23 ALT 16 Alkaline Phosphatase 103 C-Reactive Protein 0.18 Rheumatology Labs 06/26/23 16:37 Rheumatoid Factor < 13.0 Cycl Citrul Peptide IgG 38 H Assessment & Plan Assessment & Plan (1) Seropositive rheumatoid arthritis: Comment: intially t dx with UCTD around 2018 +CHARAN arthralgias. HCQ 2018 dx changed sero + RA based on +CCP Ab 06/2023 Active ds when HCQ lowered to 200 mg, needs 400 mg effective Code(s): M05.9 - Rheumatoid arthritis with rheumatoid factor, unspecified Category: Medical Plan: #Seropositive RA Patient is a 69-year-old female with seropositive rheumatoid arthritis here today for follow up. Currently in remission on Plaquenil monotherapy. Previously tried to lower hydroxychloroquine to 200 and this was met with active disease. We will continue her current dosage. Plan - Plaquenil 200mg bid - RTC 6 months - Labs before visit: CBC, CMP, ESR, CRP (2) Encounter for screening for osteoporosis: Code(s): Z13.820 - Encounter for screening for osteoporosis Plan: #Screening for osteoporosis Age for screening osteoporosis is 65 and older. Patient is at the age of screening with no previous DEXA scans noted in chart. We will order DEXA scan for right before her next appt Plan - DEXA scan in 6 months before return appt - Check vit D (3) Long-term use of hydroxychloroquine: Comment: Eye exam okay 09/2022 Code(s): Z79.899 - Other intermission coordinator (current) drug therapy Category: Medical Plan: #Long-term Use of Hydroxychloroquine Discussed with patient the risks and benefits of hydroxychloroquine in managing the rheumatic condition Benefits include: - Reduced pain, reduce mortality, maintenance of remission and reduction of flares Risks include: - GI upset, skin hyperpigmentation, retinal toxicity (especially after more than 5 years of use), myopathy Advised yearly ophthalmology visits Last ophthalmology visit: 03/09/24. No evidence of plaquenil toxicity Plan I spent 26 minutes reviewing the record and labs, taking a history, examining the patient, discussing the treatment plan, ordering diagnostic work up and documenting in the medical record Orders: Orders Complete Blood Count Auto Diff 6 Months M05.9 - Rheumatoid arthritis with rheumatoid factor, unspecified XR DEXA axial skeleton 6 Months M81.0 - Age-related osteoporosis without current pathological fracture Comprehensive Met. Panel 6 Months M05.9 - Rheumatoid arthritis with rheumatoid factor, unspecified C Reactive Protein 6 Months M05.9 - Rheumatoid arthritis with rheumatoid fact or, unspecified Erythrocyte Sedimentation Rate 6 Months M05.9 - Rheumatoid arthritis with rheumatoid factor, unspecified Vitamin D 25-OH (D2 and D3) 6 Months E55.9 - Vitamin D deficiency, unspecified Coding Level of Care Code Est Pt Level 3 (45834) Complex EM visit Add On G2211 Diagnoses Seropositive rheumatoid arthritis M05.9 Encounter for screening for osteoporosis Z13.820 Long-term use of hydroxychloroquine Z79.899
[2024-08-04 08:21] VITALS: BP 134/62; PULSE 74; O2SAT 97; BMI 27.5
== END 2024-08-04 08:41 | disposition home or self-care (01) ==
LOC: HO.RHE 08:15
PROVIDERS: PCP Internal Medicine; Visit Provider Student in an Organized Health Care Education/Training Program
DX: M05.79 Rheumatoid arthritis with rheumatoid factor of multiple sites without organ or systems involvement (principal); Z13.820 Encounter for screening for osteoporosis; Z79.899 Other long term (current) drug therapy
CPT/HCPCS: 99213; G2211

== ENCOUNTER → 2024-08-04 08:14 | Outpatient (BNVA) | payer MEDICARE, OTHER, SELFPAY | PROVIDERS: PCP Internal Medicine; Visit Provider Student in an Organized Health Care Education/Training Program | DX: M05.79 Rheumatoid arthritis with rheumatoid factor of multiple sites without organ or systems involvement (principal); Z13.820 Encounter for screening for osteoporosis; M15.1 Heberden's nodes (with arthropathy); Z79.899 Other long term (current) drug therapy | CPT/HCPCS: 99212 ==

== ENCOUNTER 2025-01-12 10:39 | Outpatient (REF) | payer MEDICARE, OTHER, SELFPAY ==
--- NOTE | ~2025-01-12 | MM_ITS ---
EXAMINATION: DXA BONE DENSITY AXIAL HISTORY: M81.0 - Age-related osteoporosis without current pathological fracture TECHNIQUE: [place] Dual energy absorptiometry (DEXA) of the lumbar spine, total left hip, and femoral neck was performed. COMPARISON: Comparison is made with the prior examination dated 11/30/2014. FINDINGS: The bone mineral density of the lumbar spine is 1.269 g/cm2, corresponding to a T-score of 0.7, and a Z-score of 1.8. This is indicative of normal bone mineral density. This represents a BMD change of -6.8% compared to the prior exam. This is not statistically significant. The bone mineral density of the left total hip is 0.835 g/cm2, corresponding to a T-score of -14, and a Z-score of -0.4. This is indicative of osteopenia. This represents a BMD change of -8.8% compared to the prior exam. This is statistically significant. The bone mineral density of the left femoral neck is 0.786 g/cm2, corresponding to a T-score of -1.8, and a Z-score of -0.6. This is indicative of osteopenia. This represents a BMD change of -14.5% compared to the prior exam. FRACTURE RISK: The FRAX index suggests a ten year probability of major osteoporotic fracture of 13.8%, and of hip fracture 2.4%. MM/XR DEXA axial skeleton IMPRESSION: Based on bone mineral density, and according to World Health Organization (WHO) criteria, the diagnosis is consistent with osteopenia. Statistically, 68% of repeat scans fall within 1 SD (+/- 0.010 g/cm2 for AP spine L1-L4) and 1 SD (+/- 0.012 g/cm2 for femur total) FRAX is a trademark of the [employer] [place] [employer] Met[employer], a World Health Organization (WHO) Collaborating Center. Electronically signed by: Elvin Weston MD 01/12/2025 11:07 AM [facility]
--- OUTSIDE RECORDS SUMMARY | 2025-01-12 12:23 | XMS_ITS | Encounter Summary ---
Author Organization [facility] Address [address] [place] [address] [place] [phone] Phone Care Team Providers Care Multi Line Claims Adjuster Name Role Phone Patience Rivero NP Primary Care Provider [phone] Reason for Referral * MRI/CAT Scan - Closed Specialty Diagnoses / Procedures Referred By Lilian allison Referred To Contact Radiology Diagnoses Mixed conductive and sensorineural hearing loss, unilateral, right ear, with unrestricted hearing on the contralateral side Otalgia, left ear Impacted cerumen, right ear Procedures CT Face Cecilio Huitron MD Phone: tel: fax: mailto: Referral ID Status Reason Start Date Expiration Date Visits Re quested Visits Authorized [id number] Closed 07/17/2021 07/17/2022 1 1 Encounter Details Date Type Department Care Team (Latest Contact Info) Description 07/17/2021 Transcribe Orders Virtual Department [address] [place] [address] Cecilio Huitron MD [address] [place] [phone] [email or web address] Mixed conductive and sensorineural hearing loss, unilateral, right ear, with unrestricted hearing on the contralateral side (Primary Dx); Otalgia, left ear; Impacted cerumen, right ear Social History Tobacco Use Types Packs/Day Years Used Date Smoking Tobacco: Never Smokeless Tobacco: Never Alcohol Use Standard Drinks/Week Comments Yes 1 (1 standard drink = 0.6 oz pur e alcohol) 0 to 1 or less per month Comments No Sex and Gender Information Value Date Recorded Sex Assigned at Not on file Legal Sex Female 10:35 AM EST Gender Identity Not on file Sexual Orientation Not on file documented as of this encounter Plan of Treatment Not on file documented as of this encounter Results * CT FACE WITHOUT CONTRAST (08/08/2021 9:34 AM EDT) Anatomical Region Laterality Modality Face Computed Tomogra phy 08/08/2021 12:5 9 PM EDT Impressions 08/08/2021 1:10 PM EDT 1.Mild mucosal thickening of the left maxillary sinus with otherwise clear paranasal sinuses. 2.Within the limitations of non-dedicated technique, no temporal bone abnormality, aside from partial left mastoid air cell opacification. Consider dedicated CT temporal bone protocol for further evaluation if there is continued concern for an etiology of conductive hearing loss. 3.Prominent lingual tonsillar tissue for age. Narrative 08/08/2021 1:[address] FACE WITHOUT CONTRAST TECHNIQUE: Multidetector-row CT of the sinuses was performed without intravenous contrast using tailored dose modulation techniques. Images were reconstructed in the axial, coronal, and sagittal planes. COMPARISON: None. FINDINGS: Frontal sinuses and frontoethmoidal junctions: Underpneumatized. Anterior and posterior ethmoid air cells: Clear. Maxillary sinuses and infundibula: Mild mucosal thickening on the left and trace mucosal thickening on the right. Sphenoid sinuses and sphenoethmoidal recesses: Clear. Nasal cavity: Nasal septal undulation with right-sided spur anteriorly. Imaged maxillary teeth: No periapical lucencies. Mastoid air cells: Partial opacification of the left mastoid air cells. Temporomandibular joints: No significant degenerative remodeling. Petrous temporal bones: Within the limitations of technique, no opacities are seen within the middle or external auditory canals. No evidence of erosion is noted. Brain: Images of the brain parenchyma are not of diagnostic quality for the soft tissues. No focal abnormality is visible with this technique. Orbits and globes: No abnormality. Imaged cervical spine: Multilevel mild height loss with associated disc- osteophyte complex duration Prominent lingual tonsillar tissue for age. Procedure Note Car Castano MD - 08/08/2021 CT FACE WITHOUT CONTRAST TECHNIQUE: Multidetector-row CT of the sinuses was performed withoutintravenous contrast using tailored dose modulation techniques. Imageswere reconstructed in the axial, coronal, and sagittal planes. COMPARISON: None. FINDINGS: Frontal sinuses and frontoethmoidal junctions: Underpneumatized. Anterior and posterior ethmoid air cells: Clear. Maxillary sinuses and infundibula: Mild mucosal thickening on the left andtrace mucosal thickening on the right. Sphenoid sinuses and sphenoethmoidal recesses: Clear. Nasal cavity: Nasal septal undulation with right-sided spur anteriorly. Imaged maxillary teeth: No periapical lucencies. Mastoid air cells: Partial opacification of the left mastoid air cells. Temporomandibular joints: No significant degenerative remodeling. Petrous temporal bones: Within the limitations of technique, no opacitiesare seen within the middle or external auditory canals. No evidence oferosion is noted. Brain: Images of the brain parenchyma are not of diagnostic quality forthe soft tissues. No focal abnormality is visible with this technique. Orbits and globes: No abnormality. Imaged cervical spine: Multilevel mild height loss with associateddisc- osteophyte complex duration Prominent lingual tonsillar tissue for age. IMPRESSION: 1.Mild mucosal thickening of the left maxillary sinus with otherwise clearparanasal sinuses. 2.Within the limitations of non-dedicated technique, no temporal boneabnormality, aside from partial left mastoid air cell opacification.Consider dedicated CT temporal bone protocol for further evaluation ifthere is continued concern for an etiology of conductive hearing loss. 3.Prominent lingual tonsillar tissue for age. Cecilio Huitron MD IMG CT HEAD/NECK Final Result documented in this encounter Visit Diagnoses Diagnosis Mixed conductive and sensorineural hearing loss, unilateral, right ear, with unrestricted hearing on the contralateral side- Primary Otalgia, left ear Impacted cerumen, right ear Mixed conductive and sensorineural hearing loss, unilateral, right ear, with unrestricted hearing on the contralateral side Otalgia, left ear Impacted cerumen, right ear documented in this encounter Care Teams Multi Line Claims Adjuster Relationship Specialty Start Date End Date Patience Rivero NP PCP - General Family Medicine 03/04/17 documented as of this encounter Additional Source Comments The information contained in this document represents components of the legal health record. It is not the complete legal health record.[facility]
--- OUTSIDE RECORDS SUMMARY | 2025-01-12 12:23 | XMS_ITS | Clinical Summary ---
Author Organization [facility] Address [address] [place] [address] Phone Care Team Providers Care Discotheque Dancer Name Role Phone Patience Rivero CARAMEL CUTTER MACHINE Primary Care Provider [phone] Allergies Active Allergy Reactions Criticality Noted Date Comments Penicillins Rash Low 04/30/2017 Sulfa (Sulfonamide Antibiotics) Rash Low 04/12 Medications omeprazole (PRILOSEC) 20 MG capsuleIndicat ions:gastroeso phageal reflux disease Take 20 mg by mouth daily. Indications: gastroesophageal reflux disease Active hydroxychloroq uine (PLAQUENIL) 200 mg tablet TAKE 1 TABLET BY MOUTH EVERY DAY 09/02/19 19 Active fluticasone propionate (FLONASE) 50 mcg/actuation nasal spray 2 sprays by Nasal route. 11/28/19 19 Active famotidine (PEPCID) 20 MG tablet Take 20 mg by mouth nightly at bedtime as needed for heartburn. Active acetaminophen (TYLENOL) 500 MG tablet Take 500 mg by mouth every 6 (six) hours as needed for pain (specific location in comments). Active Active Problems No known active problems Social History Tobacco Use Types Packs/Day Years Used Date Smoking Tobacco: Never Smokeless Tobacco: Never Alcohol Use Standard Drinks/Week Comments Yes 1 (1 standard drink = 0.6 oz pur e alcohol) 0 to 1 or less per month Education Answer Date Recorded Are you interested in more education? Not on amrita e 06/08/2022 Are you concerned about learning? Not on file 06/08/2022 No 06/08/2022 No 06/08/2022 Digital Access Answer Date Recorded No 07/07/2022 No 07/07/2022 No 07/07/2022 Reliable internet access at home? Not on file 07/07/2022 Device with a working camera? Not on file Comments No Sex and Gender Information Value Date Recorded Sex Assigned at Not on file Legal Sex Female 10:35 AM EST Gender Identity Not on file Sexual Orientation Not on file Last Filed Vital Signs Vital Sign Reading Time Taken Comments Blood Pressure 119/68 02/03/2020 11:30 AM EST Pulse 76 02/03/2020 9:49 AM EST Temperature 36 C (96.8 F) 02/03/2020 11:15 AM EST Respiratory Rate 12 02/03/2020 11:15 AM EST Oxygen Saturation 99% 02/03/2020 11:31 AM EST Inhaled Oxygen Concentration - - Weight 85.3 kg (188 lb) 02/02/2020 10:42 AM EST Height 170.2 cm (5' 7 ) 04/12/2019 9:23 AM EST Body Mass Index 29.44 04/12/2019 9:23 AM EST Plan of Treatment Health Maintenance Due Date Last Done Comments Adult Td,Tdap Booster 1955 LIPID PANEL 1955 DEPRESSION SCREENING 1968 HEPATITIS C SCREENING 1974 MAMMOGRAM 1996 COLOGUARD 2001 FIT TEST 2001 FOBT 2001 SIGMOIDOSCOPY 2001 VIRTUAL COLONOSCOPY 2001 PNEUMOCOCCAL VACCINES (50+ years) (1 of 1 - PCV) 2006 ZOSTER VACCINES (1 of 2) 2006 OSTEOPOROSIS SCREENING INITIAL (ONE-TIME) 2021 INFLUENZA VACCINE (#1) 2024 , 12/02/2019, 12/10/2017, Additional history exists COVID-19 VACCINE (3 - 2024- season) 2024 03/08/2020, 02/09/2020 COLONOSCOPY 05/04/2027 05/03/2017 COLORECTAL CANCER SCREENING 05/04/2027 RSV VACCINE (1 - 1-dose 75+ series) 05/24/2031 SMOKING STATUS SCREENING (Once After 26 Yrs) Completed 02/03/2020 HEPATITIS A VACCINES Aged Out No long er eligible based on patient's age to complete this topic HIB VACCINES Aged Out No longer eligi ble based on patient's age to complete this topic MENINGOCOCCAL VACCINES (ACWY) Aged Out No longer eligible based on patient's age to complete this topic MENINGOCOCCAL VACCINES (B) Aged Out N o longer eligible based on patient's age to complete this topic Medical Devices Implanted Type Area Base Manager Device Identifier Shelf Expiration Date Model / Serial / Lot Inside My Right Ear I Have A Wire Procedures Procedure Name Priority Date/Time Associated Diagnosis Comments ENDOSCOPY, COLON 05/03/2017 12:2 0 PM EDT from Last 3 Months or Most Recently Relevant to Health Maintenance Results * ENDOSCOPY, COLON (05/03/2017 12:20 PM EDT) Narrative Transcriptions Jamie Shukla MD - 05/03/2017 12:20 PM EDT Patient Name: Nikkie Pamela Attending MD:: JAMIE SHUKLA MD Procedure Date: 05/03/2017 12:20 PM Date of : 1955 Age: 61 Admit Type: Outpatient Gender: Female Room: [place] [address] Referring MD: Patience Rivero Exam Type: Colonoscopy Indications: Screening for colorectal malignant neoplasm Medications: Sedation Required Anesthesia Staff Assistance Procedure: Informed consent was obtained from the patient after discussion of the indications, limitations,alternatives, benefits, and risks of the procedure. Risksspecifically discussed include but are not limited to medication reactions, missed lesions, bleeding, perforation, orthe need for emergent surgery. Throughout the procedure, the patient's blood pressure, pulse, end-tidal CO2, and oxygen saturations were monitored continuously. The Olympus adult colonoscope CFQ 180AL #3 wasintroduced through the anus and advanced to the cecum, identifiedby appendiceal orifice and ileocecal valve. Thecolonoscopy was performed without difficulty. The patient tolerated the procedure well. The quality of the bowelpreparation was good. Complications: No immediate complications. Estimated blood loss:None. Findings: The perianal and digital rectal examinations werenormal. The colon (entire examined portion) appeared normal. Internal hemorrhoids were found during retroflexion.The hemorrhoids were mild. Impression: - The entire examined colon is normal. - Internal hemorrhoids. - No specimens collected. Recommendation: - Discharge patient to home (ambulatory). - Repeat colonoscopy in 10 years for screeningpurposes. - Examination should be done sooner if symptoms developor family history changes. JAMIE SHUKLA MD 05/03/2017 12:49:57 PM This report has been signed electronically. Number of Addenda: 0 Note Initiated On: 05/03/2017 12:20 PM Procedure Code(s): --- Professional --- G0121, Colorectal cancer screening; colonoscopy on individual not meeting criteria for high risk --- Technical --- G0121, Colorectal cancer screening; colonoscopy on individual not meeting criteria for high risk Diagnosis Code(s): --- Professional --- Z12.11, Encounter for screening for malignant neoplasm of colon K64.8, Other hemorrhoids --- Technical --- Z12.11, Encounter for screening for malignant neoplasm of colon K64.8, Other hemorrhoids CPT copyright 2016 [employer]. All rights reserved. The codes documented in this report are preliminary and upon artist scientific reviewmay be revised to meet current compliance requirements. [address] [place] [address] Patience Rivero NP GI PROCEDURE ORDERABLES Final R esult from Last 3 Months or Most Recently Relevant to Health Maintenance Insurance [facility] MEDICARE PART A & B [facility] MEDICARE PART A & B [facility] [employer] [facility] MEDICARE [facility] A & B [facility] [employer] [facility] MEDICARE PART A & B [facility] [employer] [facility] MEDICARE PART A & B [facility] MEDICARE PART A & B [facility] MEDICARE PART A & B [facility] MEDICARE PART A & [place] [address] [place] [address] MEDICARE PART A & B Care Teams Discotheque Dancer Relationship Specialty Start Date End Date Pateince Rivero NP PCP - General Family Medicine 03/04/17 Additional Source Comments The information contained in this document represents components of the legal health record. It is not the complete legal health record.[facility]
--- OUTSIDE RECORDS SUMMARY | 2025-01-12 12:23 | XMS_ITS | Encounter Summary ---
Author Organization [facility] Address [address] [place] [address] Phone Care Team Providers Care Power Washer Name Role Phone Patience Rivero NP Primary Care Provider [phone] Encounter Details Date Type Department Care Team (Late st Contact Info) Description 05/03/2017 Procedure Pass [facility] Endoscopy Admitting Dept Virtual Department [address] [place] [address] Social History Tobacco Use Types Packs/Day Years Used Date Smoking Tobacco: Never Smokeless Tobacco: Never Alcohol Use Standard Drinks/Week Comments Yes 1 (1 standard drink = 0.6 oz pur e alcohol) 0 to 1 or less per month Comments Unknown Sex and Gender Information Value Date Recorded Sex Assigned at Not on file Legal Sex Female 10:35 AM EST Gender Identity Not on file Sexual Orientation Not on file documented as of this encounter Plan of Treatment Not on file documented as of this encounter Visit Diagnoses Not on filedocumented in this encounter Care Teams Power Washer Relationship Specialty Start Date End Date Patience Rivero NP PCP - General Family Medicine 03/04/17 documented as of this encounter Additional Source Comments The information contained in this document represents components of the legal health record. It is not the complete legal health record.[facility]
--- OUTSIDE RECORDS SUMMARY | 2025-01-12 12:23 | XMS_ITS | Encounter Summary ---
Author Organization [facility] Address [address] [place] [address] Phone Care Team Providers Care Toe Former Stitchdowns Name Role Phone Patience Rivero NP Primary Care Provider [phone] Encounter Details Date Type Department Care Team (Latest Contact Info) Description 10/06/2020 Transcribe Orders [facility] [address] [place] [address] Katerin Jefferson MD [address] [place] [address] Other overlap syndromes (Primary Dx) Social History Tobacco Use Types Packs/Day Years [...] documented as of this encounter Results * Complement C4 (10/18/2020 4:26 PM EDT) C4 26 12 - 39 mg/dL [facility] Blood 10/18/2020 4:26 PM EDT 10/18/2020 4:38 PM EDT us Katerin Jefferson MD LAB BLOOD BKR ORD ERABLES Final Result [address] [address] * Complement C3 (10/18/2020 4:26 PM EDT) C3 124 81 - 157 mg/dl [facility] Blood 10/18/2020 4:26 PM EDT 10/18/2020 4:38 PM EDT us Katerin Jefferson MD LAB BLOOD BKR ORD ERABLES Final Result Performing Organization Address City/[facility]/ZIP Co de Phone Number [address] [address] documented in this encounter Visit Diagnoses Diagnosis Other overlap syndromes- Primary documented in this encounter Care Teams Toe Former Stitchdowns Relationship Specialty Start Date End Date Patience Rivero NP PCP - General Family Medicine 03/04/17 documented as of this encounter Additional Source Comments The information contained in this document represents components of the legal health record. It is not the complete legal health record.[facility]
--- OUTSIDE RECORDS SUMMARY | 2025-01-12 12:23 | XMS_ITS | Encounter Summary ---
Author Organization [facility] Address [address] [place] [address] Phone Care Team Providers Care Winding Machine Operator Name Role Phone Patience Rivero NP Primary Care Provider [phone] Encounter Details Date Type Department Care Team (Late st Contact Info) Description 02/03/2020 Procedure Pass [facility] Endoscopy Admitting Dept Virtual Department [address] [place] [address] Social History Tobacco Use Types Packs/Day Years [...] on filedocumented in this encounter Care Teams Winding Machine Operator Relationship Specialty Start Date End Date Patience Rivero NP PCP - General Family Medicine 03/04/17 documented as of this encounter Additional Source Comments The information contained in this document represents components of the legal health record. It is not the complete legal health record.[facility]
--- OUTSIDE RECORDS SUMMARY | 2025-01-12 12:23 | XMS_ITS | Encounter Summary ---
Author Organization [facility] Address [address] [place] [address] Phone Care Team Providers Care Tobacco Hanger Name Role Phone Patience Rivero AUTOMOBILE RENTAL CLERK Primary Care Provider [phone] Encounter Details Date Type Department Care Team (Late st Contact Info) Description 07/17/2021 Procedure Pass [facility], Ct Scan - [facility] [address] [place] [address] Social History Tobacco Use Types Packs/Day Years [...] on filedocumented in this encounter Care Teams Tobacco Hanger Relationship Specialty Start Date End Date Patience Rivero NP PCP - General Family Medicine 03/04/17 documented as of this encounter Additional Source Comments The information contained in this document represents components of the legal health record. It is not the complete legal health record.[facility]
== END 2025-01-12 10:40 | disposition home or self-care (01) ==
LOC: HO.MAMMO 10:39
PROVIDERS: Visit Provider Student in an Organized Health Care Education/Training Program
DX: M81.0 Age-related osteoporosis without current pathological fracture (principal)
CPT/HCPCS: 77080

== ENCOUNTER → 2025-01-12 11:00 | Outpatient (BNV) | payer MEDICARE, OTHER, SELFPAY | PROVIDERS: Visit Provider Radiology Diagnostic Radiology | DX: E28.39 Other primary ovarian failure (principal) | CPT/HCPCS: 77080 ==